=== PATIENT | male | born 2000 | race Two or more races ===

== ENCOUNTER 2023-02-25 21:33 | Inpatient (IN) | payer OTHER, SELFPAY ==
[2023-02-25 21:57] VITALS: BP 139/79; PULSE 85; RESP 18; TEMP 36.4; O2SAT 97; BMI 29.8
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
[2023-02-26 07:54] LABS: Estimated Average Glucose 94 mg/dL; Hemoglobin A1c % 4.9 % (<6.0)
[2023-02-26 08:00] VITALS: BP 137/67; PULSE 60; RESP 18; TEMP 36.4; O2SAT 98
[2023-02-26 08:07] LABS: Alanine Aminotransferase 37 U/L (0-40); Albumin Level 4.4 g/dL (3.5-5.0); Alkaline Phosphatase 61 U/L (39-117); Anion Gap 12 (12-20); Aspartate Amino Transferase 27 U/L (5-37); Bilirubin Total 0.4 mg/dL (0.0-1.0); Blood Urea Nitrogen 15 mg/dL (9-16); Calcium 9.5 mg/dL (8.4-10.2); Carbon Dioxide 26 mmol/L (22-29); Chloride 105 mmol/L (96-108); Cholesterol 185 mg/dL (<200); Creatinine Clr Calc Pharmacy 187.5; Estimated Glomerular Filt Rate > 60; Glucose Fasting 101 mg/dL (60-99); HDL Cholesterol 55 mg/dL (>40); LDL Cholesterol Calculated 90 mg/dL (<100); Potassium 4.1 mmol/L (3.3-5.1); Sodium 139 mmol/L (135-145); Total Protein 7.2 g/dL (6.5-8.0); Triglycerides 201 mg/dL (<150)
[2023-02-26 08:39] LABS: Folate 7.3 ng/mL (> or = 4.0); Vitamin B12 398 pg/mL (200-900)
--- NOTE | 2023-02-26 10:42 | HO.PM.IMCN ---
History of Present Illness Data of Consult Service Date: 02/26/23 Primary Care Provider: Unknown Physician HPI 22-year-old man with no significant medical history admitted to for psychiatric care. At this time use no acute medical complaints. His vital signs are stable. Labs in the ED within acceptable limits. Review of Systems Review of Systems: Denies any recent fever chills or decrease in appetite respiratory denied shortness of breath cardiovascular Denied chest pain gastrointestinal denied nausea, vomiting, diarrhea genitourinary denied frequency neuropsych denies any weakness or seizures all other systems reviewed are negative [facility] Medical History Depression Pertinent family history: denies cardiac disease Surgical History (Updated 02/26/23 @ 11:12 by Rea Chambers NP) History of surgery on arm Social History Household Members: Family Housing: House Do you presently have visiting nurse or other home services: No Patient Tobacco Use Status: Current everyday Tobacco user Tobacco use type: Cigarette Cigarettes Per Day: 10 Years Smoked: 10 e-Cigarette/Vaping Use: Currently Using Second Hand Smoke Exposure: Yes Substance Use Type: Former Substance User service: No Sexual orientation: Straight/Heterosexual Meds Allergies Allergy/AdvReac Type Severity Reaction Status Date / Time No Known Allergies Allergy Verified 02/25/23 21:58 Active Medications: Current Medications Acetaminophen (Acetaminophen 325 Mg Tablet) 650 mg PO Q6H PRN PRN Reason: Headache/Pain Mild Scale (1-3) Al Hydroxide/Mg Hydroxide (Magnesium Hydrox/Alum Hydrox 30 Ml Oral.Susp) 30 ml PO Q6H PRN PRN Reason: Heartburn/Nausea Hydroxyzine HCl (Hydroxyzine Hcl 25 Mg Tablet) 25 mg PO Q6H PRN PRN Reason: Anxiety Magnesium Hydroxide (Milk Of Magnesia 30 Ml Oral.Susp) 30 ml PO DAILY PRN PRN Reason: Constipation Trazodone HCl (Trazodone Hcl 50 Mg Tablet) 50 mg PO BEDTIME MRX1 PRN PRN Reason: Insomnia Physical Exam Vital Signs and Narrative: Vital Signs: Last Vital Signs Temp 97.5 F 02/26/23 08:00 Pulse 60 02/26/23 08:00 Resp 18 02/26/23 08:00 BP 137/67 02/26/23 08:00 Pulse Ox 98 02/26/23 08:00 O2 Del Method Room Air 02/26/23 08:00 BMI result Body Mass Index 29.8 Appearing in no acute distress head is normocephalic atraumatic eyes pupils are PERRLA sclera is anicteric mouth throat mucous membranes are intact and moist neck is supple no lymphadenopathy, no JVD noted lungs normal expansion heart regular rate rhythm no abdominal tenderness neuro patient is alert x3, no focal deficits Cranial nerves 2-12 grossly intact without focal deficits Results Labs 02/26/23 07:33 Labs: Laboratory Results - last 24 hr 02/26/23 07:33 Anion Gap 12 Estim Creat Clear Calc 187.5 Estimated GFR > 60 Fasting Glucose 101 H Estimat Average Glucose 94 Hemoglobin A1c % 4.9 Calcium 9.5 Total Bilirubin 0.4 AST 27 ALT 37 Alkaline Phosphatase 61 Total Protein 7.2 Albumin 4.4 Triglycerides 201 H Cholesterol 185 LDL Cholesterol, Calc 90 HDL Cholesterol 55 Vitamin B12 398 Folate 7.3 TSH 2.40 Assessment and Plan (1) Depression: Status: Inactive (2) Bipolar 1 disorder with moderate saba: Status: Acute Plan 22-year-old man admitted to for psychiatric care Mental health Management as per psychiatric team Patient has no acute or chronic medical problems Time Spent With Patient Time: Total time managing care of this patient today ____ minutes.
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
[2023-02-26] MEDS: OLANZapine 2.5 MG TABLET PO (14:24)
[2023-02-26] MEDS: hydrOXYzine HCL 25 MG TABLET PO (18:25)
[2023-02-26 20:15] VITALS: BP 135/84; PULSE 86; RESP 18; O2SAT 97
[2023-02-26] MEDS: OLANZapine 7.5 MG TABLET PO (20:27)
[2023-02-26] MEDS: Melatonin 3 MG TABLET 6 MG PO (21:17)
[2023-02-27 08:00] VITALS: BP 118/59; PULSE 84; RESP 18; TEMP 37.1; O2SAT 97
[2023-02-27] MEDS: OLANZapine 2.5 MG TABLET PO (08:28)
--- NOTE | 2023-02-27 11:15 | HO.PSYCHPN ---
Subjective Subjective Date of Service: 02/27/23 Reason For Visit: Bipolar Disorder, unspecified Subjective Notes: 3 Day Interim History: Pt reports he feels fine on current meds and off fluoxetine- discussed risk of weight gain and he is aware- Also hopes to get job in [employer]- still had trouble sleeping last night discussed prn hydroxzyine if olanzapine and melatonin don't work tonight.- Medication Compliance: Yes Side effects from medications: No Attending Groups: Intermittent Review of Systems Acute medical concerns: No Medical Review of Systems: unchanged Mental Status Exam Mental Status Exam Narrative: irritable with one nurse- pleasant with provider- thought nurse was rude- Patient Appearance: Appropriate Patient Orientation: Person, Place, Time and Situation Level of Consciousness: Awake Patient Behavior: Appropriate and Good Eye Contact Behavior Comments: not consistently pleasant with all staff- Mood Description: Calm Affect Description: Labile Ability to Follow Directions: Fair Speech Pattern: Clear and Excited Hallucinations: None Delusions: Not Present Thought Process: Intact and Distracted Thought Content: positive for Tangential Depressive Symptoms: Difficulty Sleeping Abnormal Motor Activity Signs and Symptoms: Restlessness Judgement: Fair Diagnostics Vital Signs (24Hr): Vital Signs - 24 hr 02/26/23 20:15 02/27/23 08:00 Temperature 98.8 F Pulse Rate 86 84 Respiratory Rate 18 18 Blood Pressure 135/84 118/59 L Pulse Oximetry 97 97 Oxygen Delivery Method Room Air Room Air BMI result Body Mass Index 29.8 Labs 02/26/23 07:33 Labs: Laboratory Results - last 48 hr 02/26/23 07:33 Sodium 139 Potassium 4.1 Chloride 105 Carbon Dioxide 26 Anion Gap 12 BUN 15 Creatinine 0.75 Estim Creat Clear Calc 187.5 Estimated GFR > 60 Fasting Glucose 101 H Estimat Average Glucose 94 Hemoglobin A1c % 4.9 Calcium 9.5 Total Bilirubin 0.4 AST 27 ALT 37 Alkaline Phosphatase 61 Total Protein 7.2 Albumin 4.4 Triglycerides 201 H Cholesterol 185 LDL Cholesterol, Calc 90 HDL Cholesterol 55 Vitamin B12 398 Folate 7.3 TSH 2.40 Medications Medications Current Medications Acetaminophen (Acetaminophen 325 Mg Tablet) 650 mg PO Q6H PRN PRN Reason: Headache/Pain Mild Scale (1-3) Al Hydroxide/Mg Hydroxide (Magnesium Hydrox/Alum Hydrox 30 Ml Oral.Susp) 30 ml PO Q6H PRN PRN Reason: Heartburn/Nausea Hydroxyzine HCl (Hydroxyzine Hcl 25 Mg Tablet) 25 mg PO Q6H PRN PRN Reason: Anxiety Last Admin: 02/26/23 18:25 Dose: 25 mg Magnesium Hydroxide (Milk Of Magnesia 30 Ml Oral.Susp) 30 ml PO DAILY PRN PRN Reason: Constipation Melatonin (Melatonin 3 Mg Tablet) 6 mg PO BEDTIME PRN PRN Reason: Insomnia Last Admin: 02/26/23 21:17 Dose: 6 mg Olanzapine (Olanzapine 7.5 Mg Tablet) 7.5 mg PO BEDTIME VIANEY Last Admin: 02/26/23 20:27 Dose: 7.5 mg Olanzapine (Olanzapine 2.5 Mg Tablet) 2.5 mg PO DAILY VIANEY Last Admin: 02/27/23 08:28 Dose: 2.5 mg Allergies Allergies Allergy/AdvReac Type Severity Reaction Status Date / Time No Known Allergies Allergy Verified 02/25/23 21:58 Assessment & Plan Assessment & Plan (1) Bipolar 1 disorder with moderate saba: Status: Acute Code(s): F31.12 - Bipolar disorder, current episode manic without psychotic features, moderate Assessment and Plan: meds as above likely needs family meeting not sure he will agree (2) Cannabis abuse: Status: Acute Code(s): F12.10 - Cannabis abuse, uncomplicated Assessment and Plan: psycho ed (3) Alcohol abuse: Status: Acute Code(s): F10.10 - Alcohol abuse, uncomplicated Assessment and Plan: psycho ed and monitor for any withdrawl denies cravings or withdrawl - vss Plan dc fluoxetine discussed inc olanzapine dose more likely bipolar than depressed- Needs dc plan unlike [place] a few weeks ago 02/26 tweak up of olanzapine, prn of hydroxyzine for sleep - otherwise CTP Patient educated on: diagnosis and medication risk/benefits Informed Consent: further education needed Reason for continued inpatient stay Substantial Risk for: harm to others and rapid decompensation Time Spent With Patient Time: Total time managing care of this patient today ____ minutes.
[2023-02-27 20:35] VITALS: BP 134/83; PULSE 82; RESP 16; TEMP 36.5; O2SAT 97
[2023-02-27] MEDS: Melatonin 3 MG TABLET 6 MG PO (20:48)
[2023-02-27] MEDS: OLANZapine 7.5 MG TABLET PO (20:48)
[2023-02-27] MEDS: hydrOXYzine HCL 50 MG TABLET PO (20:51)
[2023-02-28 08:00] VITALS: BP 137/78; PULSE 78; RESP 18; TEMP 36.7; O2SAT 98
[2023-02-28] MEDS: OLANZapine 2.5 MG TABLET PO (08:22)
--- NOTE | 2023-02-28 17:26 | HO.PSYCHPN ---
Subjective Subjective Date of Service: 02/28/23 Reason For Visit: Bipolar Disorder, unspecified Interim History: calm, cooperative. linear, logical, no signs of psychosis. feeling well on more zyprexa and no prozac. interested in DC, 3-day notice matures . per staff, appeared hypomanic on day of of his stay, then has settled and been largely normal since. sleeping well. Mental Status Exam Mental Status Exam Narrative: adequately dressed and groomed, no PMA/PMR, cooperative. speech nml rate, amount, loudness, tone, latency. thoughts linear and logical. affect constricted, normo-intense, non-labile. mood great. denies SI/SIBI/HI/AVH. Diagnostics Vital Signs (24Hr): Vital Signs - 24 hr 02/27/23 20:35 02/28/23 08:00 Temperature 97.7 F 98.0 F Pulse Rate 82 78 Respiratory Rate 16 18 Blood Pressure 134/83 137/78 Pulse Oximetry 97 98 Oxygen Delivery Method Room Air Room Air BMI result Body Mass Index 29.8 Labs 02/26/23 07:33 Medications Medications Current Medications Acetaminophen (Acetaminophen 325 Mg Tablet) 650 mg PO Q6H PRN PRN Reason: Headache/Pain Mild Scale (1-3) Al Hydroxide/Mg Hydroxide (Magnesium Hydrox/Alum Hydrox 30 Ml Oral.Susp) 30 ml PO Q6H PRN PRN Reason: Heartburn/Nausea Hydroxyzine HCl (Hydroxyzine Hcl 25 Mg Tablet) 25 mg PO Q6H PRN PRN Reason: Anxiety Last Admin: 02/26/23 18:25 Dose: 25 mg Hydroxyzine HCl (Hydroxyzine Hcl 50 Mg Tablet) 50 mg PO BEDTIME MRX1 PRN PRN Reason: Insomnia Last Admin: 02/27/23 20:51 Dose: 50 mg Magnesium Hydroxide (Milk Of Magnesia 30 Ml Oral.Susp) 30 ml PO DAILY PRN PRN Reason: Constipation Melatonin (Melatonin 3 Mg Tablet) 6 mg PO BEDTIME PRN PRN Reason: Insomnia Last Admin: 02/27/23 20:48 Dose: 6 mg Nicotine Polacrilex (Nicotine Polacrilex 2 Mg Gum) 2 mg BUCCAL Q1H PRN PRN Reason: Nicotine Cravings Olanzapine (Olanzapine 7.5 Mg Tablet) 7.5 mg PO BEDTIME VIANEY Last Admin: 02/27/23 20:48 Dose: 7.5 mg Olanzapine (Olanzapine 2.5 Mg Tablet) 2.5 mg PO DAILY VIANEY Last Admin: 02/28/23 08:22 Dose: 2.5 mg Allergies Allergies Allergy/AdvReac Type Severity Reaction Status Date / Time No Known Allergies Allergy Verified 02/25/23 21:58 Assessment & Plan Assessment & Plan (1) Bipolar 1 disorder with moderate saba: Status: Acute Code(s): F31.12 - Bipolar disorder, current episode manic without psychotic features, moderate Assessment and Plan: meds as above likely needs family meeting not sure he will agree (2) Cannabis abuse: Status: Acute Code(s): F12.10 - Cannabis abuse, uncomplicated Assessment and Plan: psycho ed (3) Alcohol abuse: Status: Acute Code(s): F10.10 - Alcohol abuse, uncomplicated Assessment and Plan: psycho ed and monitor for any withdrawl denies cravings or withdrawl - vss Plan dc fluoxetine discussed inc olanzapine dose more likely bipolar than depressed- Needs dc plan unlike a few weeks ago 02/26 tweak up of olanzapine, prn of hydroxyzine for sleep - otherwise CTP 02/28: appears non-psychotic, non-manic. 3-day notice up weds. continue current mgmt. T/C D/C tomorrow or weds. Reason for continued inpatient stay Substantial Risk for: rapid decompensation Time Spent With Patient Time: Total time managing care of this patient today __25__ minutes.
[2023-02-28] MEDS: hydrOXYzine HCL 50 MG TABLET PO (20:09)
[2023-02-28] MEDS: Melatonin 3 MG TABLET 6 MG PO (20:09)
[2023-02-28] MEDS: OLANZapine 7.5 MG TABLET PO (20:09)
[2023-02-28 20:47] VITALS: BP 129/80; PULSE 89; RESP 98; TEMP 36.2; O2SAT 98
[2023-03-01 08:40] VITALS: BP 135/87; PULSE 70; RESP 16; TEMP 36.5; O2SAT 96
[2023-03-01] MEDS: OLANZapine 2.5 MG TABLET PO (08:43)
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
--- NOTE | 2023-03-01 11:43 | PC.NURSE ---
Steph is alert, fully oriented, pleasant and cooperative with discharge process. He denies ideation, plan or intent to harm self or others. He denies current physical complaint.
== END 2023-03-01 11:55 | disposition home or self-care (01) | DRG 885 ==
PROVIDERS: Social Worker; Admitting Provider Psychiatry & Neurology Psychiatry; Visit Provider Psychiatry & Neurology Psychiatry
DX: F31.12 Bipolar disorder, current episode manic without psychotic features, moderate (principal); F17.210 Nicotine dependence, cigarettes, uncomplicated; Z71.6 Tobacco abuse counseling; F10.10 Alcohol abuse, uncomplicated; F12.10 Cannabis abuse, uncomplicated
CPT/HCPCS: 36415; 80053; 80061; 82607; 82746; 83036; 84443

== ENCOUNTER → 2023-02-25 21:33 | Outpatient (BNV) | payer MEDICAID, SELFPAY | PROVIDERS: Admitting Provider Psychiatry & Neurology Psychiatry; Visit Provider Nurse Practitioner Acute Care | DX: Z02.2 Encounter for examination for admission to residential institution (principal) | CPT/HCPCS: 99429 ==

== ENCOUNTER → 2023-02-25 21:33 | Outpatient (BNV) | payer OTHER, SELFPAY | PROVIDERS: Admitting Provider Psychiatry & Neurology Psychiatry; Visit Provider Psychiatry & Neurology Psychiatry | DX: F31.12 Bipolar disorder, current episode manic without psychotic features, moderate (principal); F12.10 Cannabis abuse, uncomplicated; F10.10 Alcohol abuse, uncomplicated | CPT/HCPCS: 99231; 99239 ==

== ENCOUNTER 2024-08-14 12:30 | Emergency (ER) | payer MEDICAID, SELFPAY ==
[2024-08-14 12:39] VITALS: BP 155/96; PULSE 110; O2SAT 95
== END 2024-08-14 17:13 | disposition left against medical advice (07) ==
PROVIDERS: Emergency Provider Emergency Medicine
DX: R51.9 Headache, unspecified (principal); Z53.21 Procedure and treatment not carried out due to patient leaving prior to being seen by health care provider

== ENCOUNTER 2024-08-16 13:35 | Emergency (ER) | payer MEDICAID, SELFPAY ==
[2024-08-16 13:51] VITALS: BP 130/72; PULSE 95; O2SAT 98
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
[2024-08-16 13:58] VITALS: BMI 33.6
--- NOTE | 2024-08-16 13:58 | PC.NURSE ---
Pt. refusing triage vital signs at this time.
[2024-08-16] MEDS: LORazepam 1 MG TABLET 2 MG PO ×2 (14:06→20:18)
--- NOTE | 2024-08-16 14:10 | PC.NURSE ---
Pt. attempting to jump over the barrier glass of the nurses' station. Verbalizes that he was attempting to do so to try to get another pt.'s half-eaten sandwich. Easily redirectable. MILO Graves notified- one-time Atarax and Zyprexa ordered. Food also provided.
[2024-08-16] MEDS: hydrOXYzine HCL 25 MG TABLET PO (14:20)
[2024-08-16 14:21] LABS: Appearance Urine Clear; Color Urine Yellow; Glucose Urine UA Negative (Negative); Leukocyte Esterase Urine Negative (Negative); Nitrite Urine Negative (Negative); Specific Gravity - Urine 1.025 (1.005-1.025); Urine Blood Negative (Negative); Urine Ketones Negative (Negative); Urine Protein Negative (Neg-Trace)
[2024-08-16] MEDS: OLANZapine 10 MG TABLET PO ×2 (14:21→20:18)
[2024-08-16 14:29] LABS: Amphetamine Screen Urine Not Detected (Not Detect); Barbiturates, Urine Not Detected (Not Detect); Benzodiazepines Screen Urine Not Detected (Not Detect); Buprenorphine Scr Not Detected (Not Detect); Cannabinoid Screen Urine POSITIVE (Not Detect); Cocaine Screen Urine Not Detected (Not Detect); Fentanyl, urine Not Detected (Not Detect); Methadone Screen, Urine Not Detected (Not Detect); Opiate Screen Urine Not Detected (Not Detect); Oxycodone Screen Urine Not Detected (Not Detect); Phencyclidine Screen Urine Not Detected (Not Detect)
[2024-08-16 14:52] VITALS: BP 110/57; PULSE 84; RESP 14; TEMP 36.5; O2SAT 95
[2024-08-16 15:35] LABS: MANUAL DIFF FLAG NO
[2024-08-16 15:36] LABS: Basophils Percent Auto 0.5 % (0-2); Eosinophils Absolute Auto 0.2 X10*3/uL (0.0-0.4); Eosinophils Percent Auto 2.5 % (0-4); Hemoglobin 13.7 g/dl (14.0-18.0); Imm Gran Abs Auto 0.03 X10*3/uL (0.00-0.03); Imm Gran Pct Auto 0.5 % (0.0-0.4); Lymphocytes Absolute Auto 2.4 X10*3/uL (1.2-4.9); Lymphocytes Percent Auto 36.3 % (20-40); Mean Corpuscular HGB Conc 35.1 g/dl (31.0-36.0); Mean Corpuscular Volume 85.3 fL (80.0-98.0); Mean Platelet Volume 8.8 fL (9.4-12.4); Monocytes Absolute Auto 0.5 X10*3/uL (0.1-1.2); Monocytes Percent Auto 7.4 % (2-11); Neutrophils Absolute Auto 3.4 x10*3/uL (2.0-8.3); Neutrophils Percent Auto 52.8 % (45-73); Platelet Count 234 X10*3/uL (160-400); Red Blood Count 4.57 X10*6/uL (4.60-5.80); White Blood Count 6.5 X10*3/uL (4.8-10.8)
[2024-08-16 16:02] LABS: Alanine Aminotransferase 43 U/L (0-40); Anion Gap 10 (12-20); Aspartate Amino Transferase 32 U/L (5-37); Bilirubin Total 0.3 mg/dL (0.0-1.0); Blood Urea Nitrogen 12 mg/dL (9-16); Calcium 9.2 mg/dL (8.4-10.2); Carbon Dioxide 25 mmol/L (22-29); Chloride 109 mmol/L (96-108); Creatinine Clr Calc Pharmacy 195.4; Estimated Glomerular Filt Rate > 60; Ethanol < 10 mg/dL; Glucose Random 121 mg/dL (60-115); Potassium 3.4 mmol/L (3.3-5.1); Sodium 141 mmol/L (135-145)
[2024-08-16 16:12] LABS: COVID-19 Test Negative (Negative); IDNOW Serial# 55D5AD1C
[2024-08-16 16:15] LABS: Alkaline Phosphatase 75 U/L (39-117)
[2024-08-16 16:39] LABS: Acetaminophen LAB < 3 mcg/mL (<30); Salicylate < 5.0 mg/dL (15-30)
--- OUTSIDE RECORDS SUMMARY | 2024-08-16 18:11 | XMS_ITS | Clinical Summary ---
Author Organization [facility] Address [address] [place] [address] Care Team Providers Care News Gathering Technician Name Role Phone Unavailable Primary Care Provider Unavailabl e Encounters Date Type Department Care Team Description 08/15/2024 Telephone [facility] [address] [place] [address] Boseptember Care Management from Last 3 Months Social History Tobacco Use Types Packs/Day Years Used Date Smoking Tobacco: Never Assessed Sex and Gender Information Value Date Recorded Sex Assigned at Not on file Legal Sex Male 1:09 PM EST Gender Identity Not on file Sexual Orientation Not on file Plan of Treatment Health Maintenance Due Date Last Done Comments Depression Screening 1998 HIV Screening 1998 SDOH Screening 1998 Alcohol/Substance Use Screening 2010 Tobacco Screening 2010 Family Planning (PISQ) 2013 HPV Vaccines (1 - Male 3-dos e series) 2013 Hepatitis C Screening 2016 DTaP/Tdap/Td Vaccines (1 - Tdap) 2017 Hepatitis B Vaccines (1 of 3 - 19+ 3-dose series) 2017 COVID-19 Vaccine (1 - 2023-2 5 season) 2024 Influenza Vaccine (#1) 2024 Zoster Vaccines (1 of 2) 2048 RSV Patients and Pa tients Aged 60 years or older (1 - 1-dose 75+ series) 2073 HIB Vaccines Aged Out No longer eligi ble based on patient's age to complete this topic Hepatitis A Vaccines Aged Out No long er eligible based on patient's age to complete this topic IPV Vaccines Aged Out No longer eligi ble based on patient's age to complete this topic Meningococcal Vaccine Aged Out No estela darin eligible based on patient's age to complete this topic Pneumococcal Vaccine: Pediat rics (0 to 5 Years) and At-Risk Patients (6 to 49) Years) Aged Out No longer eligible b ased on patient's age to complete this topic RSV under 20 months Aged Out No longe r eligible based on patient's age to complete this topic Rotavirus Vaccines Aged Out No longer eligible based on patient's age to complete this topic Care Teams News Gathering Technician Relationship Specialty Start Date End Date September JUANI Sanon C3 Registered Nurse 08/15/24
--- OUTSIDE RECORDS SUMMARY | 2024-08-16 18:11 | XMS_ITS | Encounter Summary ---
Author Organization [employer] [facility] Address [address] [place] [address] Care Team Providers Care Interpersonal Communications Professor Name Role Phone Unavailable Primary Care Provider Unavailabl e Reason for Visit * Reason Comments Care Management Encounter Details Date Type Department Care Team (Late st Contact Info) Description 08/15/[address] [phone] Stacia Sanon Care Management Social History Tobacco Use Types Packs/Day Years Used Date Smoking Tobacco: Never Assessed Sex and Gender Information Value Date Recorded Sex Assigned at Not on file Legal Sex Male 1:09 PM EST Gender Identity Not on file Sexual Orientation Not on file documented as of this encounter Plan of Treatment Not on file documented as of this encounter Visit Diagnoses Not on filedocumented in this encounter Care Teams Interpersonal Communications Professor Relationship Specialty Start Date End Date September JUANI Sanon C3 Registered Nurse 08/15/24 documented as of this encounter
[2024-08-16] MEDS: hydrOXYzine HCL 50 MG TABLET PO (20:18)
--- NOTE | 2024-08-17 04:58 | PC.NURSE ---
Patient slept intermittently but adequately, no distress observed/reported, mood labile, disposition per care team is section-12 inpatient bed search, will continue to monitor
--- NOTE | 2024-08-17 07:47 | ECG_ITS ---
Test Reason : r/o prolonge qt Blood Pressure : */* mmHG Vent. Rate : 78 BPM Atrial Rate : 78 BPM P-R Int : 154 ms QRS Dur : 102 ms QT Int : 378 ms P-R-T Axes : 60 75 31 degrees QTcB Int : 430 ms Normal sinus rhythm with sinus arrhythmia Normal ECG No previous ECGs available Referred By: Meera Rhoades Electronically Signed By: MIKAEL RAMOS MD
--- NOTE | 2024-08-17 11:35 | MHC.CARE ---
Pt was accepted to [facility] for today 08/17/24 pending nurse to nurse by Ketty. ETA is TBD during report. The accepting provider is Dr. Sauer and the address is [address] [place] [id number] Pod RN and CARE team were notified of placement.
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
--- NOTE | 2024-08-17 11:51 | MHC.EDTECH ---
Patient walking with odd gait, hissing and grunting at staff. At RN request security called.
--- NOTE | 2024-08-17 12:16 | PC.NURSE ---
nurse to nurse complete to Ketty at [facility]
[2024-08-17] MEDS: hydrOXYzine HCL 50 MG TABLET PO (12:29)
--- NOTE | 2024-08-17 12:47 | MHC.EDTECH ---
Patient pacing pod community area and staring at female care steam and power superintendent. Patient followed care steam and power superintendent as she walked into care team room. Patient walked into his room and started aggressively humping pillow, witnessed by aubrie lewis and RN.
[2024-08-17 13:30] VITALS: PULSE 91; RESP 24; O2SAT 98
[2024-08-17] MEDS: LORazepam 2 MG/ML VIAL IM (13:30)
[2024-08-17] MEDS: OLANZapine 10 MG VIAL IM (13:30)
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
--- NOTE | 2024-08-17 13:40 | PHA.MEDREC ---
Addendum entered by Yari Yuan RPh 08/17/24 13:52: reviewed by [facility] Original Note: Pharmacy Consult ? Medication Reconciliation Pharmacy has reviewed the medication reconciliation done by nursing. Claims match med list.
[2024-08-17 13:45] VITALS: PULSE 89; RESP 20; O2SAT 97
[2024-08-17 14:00] VITALS: BP 122/81; PULSE 87; RESP 18; TEMP 36.3; O2SAT 97
--- NOTE | 2024-08-17 14:07 | PC.NURSE ---
pt DCed with ambulance to [facility]. calm and cooperative with DC.
[2024-08-17 14:09] VITALS: BP 122/81; PULSE 87; RESP 18; TEMP 36.3; O2SAT 97
== END 2024-08-17 14:05 ==
PROVIDERS: Physician Assistant Medical; Emergency Provider Emergency Medicine
DX: R45.6 Violent behavior (principal); F10.10 Alcohol abuse, uncomplicated; Y90.0 Blood alcohol level of less than 20 mg/100 ml; F12.10 Cannabis abuse, uncomplicated; F31.12 Bipolar disorder, current episode manic without psychotic features, moderate; Z11.52 Encounter for screening for COVID-19; F17.210 Nicotine dependence, cigarettes, uncomplicated; Z79.899 Other long term (current) drug therapy
CPT/HCPCS: 80053; 80143; 80179; 80307; 81003; 85025; 87635; 93005; 96372; 99285; J2060; J2359; S9485

== ENCOUNTER → 2024-08-17 07:47 | Outpatient (BNV) | payer MEDICAID, SELFPAY | PROVIDERS: Emergency Provider Emergency Medicine; Visit Provider Internal Medicine Cardiovascular Disease | DX: I49.8 Other specified cardiac arrhythmias (principal) | CPT/HCPCS: 93010 ==